=== PATIENT | female | born 1975 | race Two or more races ===

== ENCOUNTER 2019-01-30 21:51 | Emergency (ER) | payer OTHER ==
[~2019-01-30] VITALS: Ht 160 cm; Wt 94.3 kg
[2019-01-30] MEDS ORDERED: ASPIRIN 325 MG TABLET PO ONE (23:00)
[2019-01-30] MEDS ORDERED: IV NORMAL SALINE 1000ML BAG 1,000 ML IV ONE (23:00)
[2019-01-30 23:08] LABS: BASO # 0.2 x10^3/uL (0.0-0.2); BASO % 1 % (0-3); EOS # 0.3 x10^3/uL (0.0-0.7); EOS % 2 % (0-3); HEMATOCRIT 38.9 % (36.0-47.0); HEMOGLOBIN 12.8 g/dL (12.0-15.5); LYMPH # 6.5 x10^3/uL (1.0-4.8); LYMPH % 37 % (24-48); MEAN CORPUSCULAR HEMOGLOBIN 26 pg (25-35); MEAN CORPUSCULAR HGB CONC 33 g/dL (31-37); MEAN CORPUSCULAR VOLUME 79 fL (79-100); MONO # 1.1 x10^3/uL (0.0-1.1); MONO % 6 % (0-9); NEUT # 9.7 x10^3uL (1.8-7.7); NEUT % 54 % (31-73); PLATELET COUNT 544 x10^3/uL (140-400); RED BLOOD COUNT 4.93 x10^6/uL (3.50-5.40); RED CELL DISTRIBUTION WIDTH 15.6 % (11.5-14.5); WHITE BLOOD COUNT 17.8 x10^3/uL (4.0-11.0)
[2019-01-30 23:27] LABS: ALBUMIN 3.4 g/dL (3.4-5.0); ALBUMIN/GLOBULIN RATIO 0.8 (1.0-1.7); CREATININE 0.7 mg/dL (0.6-1.0); GFR 90.5; MAGNESIUM 1.9 mg/dL (1.8-2.4); TOTAL BILIRUBIN 0.2 mg/dL (0.2-1.0); TOTAL PROTEIN 7.8 g/dL (6.4-8.2)
[2019-01-30 23:28] LABS: POTASSIUM 2.8 mmol/L (3.5-5.1)
[2019-01-30 23:35] LABS: CREATINE KINASE 62 U/L (26-192)
[2019-01-30 23:45] LABS: PARTIAL THROMBOPLASTIN TIME 34 SEC (24-38); PROTHROMBIN TIME PATIENT 13.2 SEC (11.7-14.0)
--- NOTE | 2019-01-30 23:45 | PHYS DOC ---
Past Medical History Past Medical History: Other Additional Past Medical Histor: "Intercranial HTN", "retains water" Past Surgical History: , Splenectomy, Other Additional Past Surgical Histo: Pancreatectomy Additional Information: Nonsmoker Alcohol Use: None Drug Use: None Adult General Chief Complaint Chief Complaint: CHEST PAIN-CARDIAC NATURE HPI HPI Patient is a 43-year-old female who presents with chest pain. She says the pain started several weeks ago and has been getting progressively worse. Today while she was driving she had a few onset chest pain that radiated up into her neck and down into her left arm weakness that was more severe than any of her previous episodes. He concerned her so she decided to come straight to the ER without taking any medication. Her past episodes of chest pain felt similar but were not nearly as severe. The past to take aspirin that would relieve the pain. She denies nausea, vomiting, SOB, diaphoresis. She has also had increased swelling of her extremities she says she retains water but is unclear why. She has blurry vision that is often associated with her headaches and has been getting a lot worse lately. Last Saturday she also had an episode of vomiting is associated with a migraine headache. Review of Systems Review of Systems Constitutional: Denies fever or chills Eyes: Denies redness or eye pain, reports blurry vision HENT: Denies nasal congestion or sore throat Respiratory: Denies cough or shortness of breath Cardiovascular: Reports chest pain. Denies palpitations GI: Denies abdominal pain, nausea, or vomiting : Denies dysuria or hematuria Musculoskeletal: Denies back pain or joint pain Integument: Denies rash or skin lesions Neurologic: Reports headache. Denies focal weakness or sensory changes Complete systems were reviewed and found to be within normal limits, except as documented in this note. Current Medications Current Medications Current Medications Medications (Trade) Dose Ordered Sig/Angélica Start Time Stop Time Status Last Admin Dose Admin Aspirin (Sergio Aspirin) 325 mg 1X ONCE 01/30/19 23:00 01/30/19 23:01 DC 01/30/19 23:11 325 MG Info (CONTRAST GIVEN -- Rx MONITORING) 1 each PRN DAILY PRN 01/31/19 00:15 01/31/19 03:45 DC Iohexol (Omnipaque 350 Mg/ml) 100 ml 1X ONCE 01/31/19 00:15 01/31/19 00:16 DC 01/31/19 00:43 100 ML Potassium Chloride (Klor-Con) 40 meq 1X ONCE 01/31/19 00:00 01/31/19 00:01 DC 01/31/19 01:12 40 MEQ Sodium Chloride 1,000 ml @ 1,000 mls/hr 1X ONCE 01/30/19 23:00 01/30/19 23:59 DC 01/30/19 23:11 1,000 MLS/HR Allergies Allergies Allergies Coded Allergies Type Severity Reaction Last Updated Verified Penicillins Allergy Unknown 01/30/19 Yes carbamazepine Allergy Unknown 01/30/19 Yes Physical Exam Physical Exam Constitutional: Well developed, well nourished, no acute distress, non-toxic appearance HENT: Normocephalic, atraumatic, oropharynx moist Eyes: PERRL, EOMI, conjunctiva normal, no discharge Neck: Normal range of motion, no tenderness, supple Cardiovascular: Heart rate normal, regular rhythm Lungs & Thorax: Bilateral breath sounds clear to auscultation, no wheezing Abdomen: Soft, no tenderness Skin: Warm, dry, no erythema, no rash Back: No tenderness, no CVA tenderness Extremities: No tenderness, ROM intact, Edema in bilateral lower extremities Neurologic: Alert and oriented X 3, normal motor function, normal sensory function, no focal deficits noted Psychologic: Affect normal, judgement normal, mood normal Current Patient Data Vital Signs Vital Signs Date Time Temp Pulse Resp B/P (MAP) Pulse Ox O2 Delivery O2 Flow Rate FiO2 01/31/19 03:02 97 16 123/54 (77) 97 Room Air 01/30/19 21:55 97.9 97.9 Lab Values Laboratory Tests Test 01/30/19 22:34 01/30/19 23:30 01/30/19 23:59 01/31/19 02:00 White Blood Count 17.8 x10^3/uL (4.0-11.0) H Red Blood Count 4.93 x10^6/uL (3.50-5.40) Hemoglobin 12.8 g/dL (12.0-15.5) Hematocrit 38.9 % (36.0-47.0) Mean Corpuscular Volume 79 fL (79-100) Mean Corpuscular Hemoglobin 26 pg (25-35) Mean Corpuscular Hemoglobin Concent 33 g/dL (31-37) Red Cell Distribution Width 15.6 % (11.5-14.5) H Platelet Count 544 x10^3/uL (140-400) H Neutrophils (%) (Auto) 54 % (31-73) Lymphocytes (%) (Auto) 37 % (24-48) Monocytes (%) (Auto) 6 % (0-9) Eosinophils (%) (Auto) 2 % (0-3) Basophils (%) (Auto) 1 % (0-3) Neutrophils # (Auto) 9.7 x10^3uL (1.8-7.7) H Lymphocytes # (Auto) 6.5 x10^3/uL (1.0-4.8) H Monocytes # (Auto) 1.1 x10^3/uL (0.0-1.1) Eosinophils # (Auto) 0.3 x10^3/uL (0.0-0.7) Basophils # (Auto) 0.2 x10^3/uL (0.0-0.2) Sodium Level 138 mmol/L (136-145) Potassium Level 2.8 mmol/L (3.5-5.1) *L Chloride Level 101 mmol/L (98-107) Carbon Dioxide Level 28 mmol/L (21-32) Anion Gap 9 (6-14) Blood Urea Nitrogen 17 mg/dL (7-20) Creatinine 0.7 mg/dL (0.6-1.0) Estimated GFR (Cockcroft-Gault) 90.5 BUN/Creatinine Ratio 24 (6-20) H Glucose Level 108 mg/dL (70-99) H Lactic Acid Level 1.2 mmol/L (0.4-2.0) Calcium Level 9.0 mg/dL (8.5-10.1) Magnesium Level 1.9 mg/dL (1.8-2.4) Total Bilirubin 0.2 mg/dL (0.2-1.0) Aspartate Amino Transferase (AST) 12 U/L (15-37) L Alanine Aminotransferase (ALT) 20 U/L (14-59) Alkaline Phosphatase 83 U/L (46-116) Creatine Kinase 62 U/L (26-192) Creatine Kinase MB (Mass) 1.0 ng/mL (0.0-3.6) Creatine Kinase MB Relative Index % (0-4) Troponin I Quantitative < 0.017 ng/mL (0.000-0.055) < 0.017 ng/mL (0.000-0.055) KX-Awv-L-Type Natriuretic Peptide 23 pg/mL (0-124) Total Protein 7.8 g/dL (6.4-8.2) Albumin 3.4 g/dL (3.4-5.0) Albumin/Globulin Ratio 0.8 (1.0-1.7) L Lipase 107 U/L (73-393) Prothrombin Time 13.2 SEC (11.7-14.0) Prothrombin Time INR 1.0 (0.8-1.1) PTT 34 SEC (24-38) D-Dimer (Genny) < 0.27 ug/mlFEU Urine Collection Type Unknown Urine Color Yellow Urine Clarity Cloudy Urine pH 5.0 Urine Specific Cantil 1.025 Urine Protein Negative mg/dL (NEG-TRACE) Urine Glucose (UA) Negative mg/dL (NEG) Urine Ketones (Stick) Negative mg/dL (NEG) Urine Blood Trace (NEG) Urine Nitrite Negative (NEG) Urine Bilirubin Negative (NEG) Urine Urobilinogen Dipstick 0.2 mg/dL (0.2 mg/dL) Urine Leukocyte Esterase Negative (NEG) Urine RBC Occ /HPF (0-2) Urine WBC 0 /HPF (0-4) Urine Squamous Epithelial Cells Few /LPF Urine Bacteria 0 /HPF (0-FEW) Urine Mucus Slight /LPF Laboratory Tests 01/30/19 22:34 Laboratory Tests 01/30/19 22:34 EKG EKG 01/30/19 at 2200: Normal sinus tachycardia at [address] segment elevation. [] Radiology/Procedures Radiology/Procedures PROCEDURE: CT ANGIOGRAPHY CHEST PQRS Compliance Statement: One or more of the following individualized dose reduction techniques were utilized for this examination: 1. Automated exposure control 2. Adjustment of the mA and/or kV according to patient size 3. Use of iterative reconstruction technique CT angiography chest with contrast 01/30/2019 11:45 PM INDICATION: Chest pain with history of protein S deficiency COMPARISON: None available TECHNIQUE: Axial CT images of the chest were obtained after the intravenous administration of nonionic contrast. Coronal and sagittal reformats are provided. Maximum intensity projection images of the thoracic vasculature are provided. FINDINGS: The thyroid gland is normal in appearance. There are no pathologically enlarged axillary, mediastinal or hilar lymph nodes. The heart size is within normal limits. No significant pericardial effusion. Thoracic aorta is normal in course and caliber. Residual thymic tissue is identified in the anterior superior mediastinum. There is adequate opacification of the pulmonary arterial system. There there are no filling defects within the pulmonary arterial system to suggest acute or chronic pulmonary embolus. There are no suspicious solid noncalcified pulmonary nodules. There are no pulmonary infiltrates. There are no pleural effusions. No pulmonary vascular congestion or pneumothorax. Visualized portions of the upper abdomen are within normal limits. No suspicious osseous lesions are visualized. IMPRESSION: There is no evidence for acute or chronic pulmonary embolism. Electronically signed by: Alka Burr MD (01/31/2019 1:10 AM) [facility] [place] DICTATED and SIGNED BY: ALKA BURR MD DATE: 01/31/19 0110 PROCEDURE: VENOUS LOWER EXT BILATERAL BILATERAL LOWER EXTREMITY ULTRASOUND WITH DOPPLER 01/30/2019 11:45 PM Clinical Information: Bilateral lower extremity edema and pain, right greater than left. Comparison: None. Technique: Multiple grayscale, color Doppler, and spectral Doppler sonographic images of the lower extremity venous structures were obtained. Findings: The right common femoral, femoral, and popliteal veins exhibit normal compression, respiratory phasicity, and augmentation. No intraluminal thrombi are identified. Color Doppler flow is demonstrated in the right posterior tibial, and peroneal veins. The left common femoral, femoral, and popliteal veins exhibit normal compression, respiratory phasicity, and augmentation. No intraluminal thrombi are identified. Color Doppler flow is demonstrated in the left posterior tibial, and peroneal veins. Greater saphenous veins are patent. Impression: 1. No evidence of deep venous thrombosis. Electronically signed by: Alka Burr MD (01/31/2019 12:37 AM) [facility] [place] DICTATED and SIGNED BY: ALKA BURR MD DATE: 01/31/19 0037[] Course & Med Decision Making Course & Med Decision Making Pertinent Labs and Imaging studies reviewed. (See chart for details) Ms. Martínez is a 43-year-old female who with a past medical history of protein S deficiency and idiopathic intracranial hypertension who presents with chest pain. Chest pain has been going on for several weeks but has been progres sively getting worse. She said of chest pain was significantly worse today and radiated up into her neck and down her left arm so she decided to come to the ED to get evaluated. EKG and troponin was negative for acute coronary syndrome. Due to her protein S deficiency and bilateral lower extremity swelling we got a CT angiogram and duplex ultrasound lower extremities that were negative for DVT and PE. After discussing with patient and she decided she wanted to return home and follow with her primary care doctor. Patient stable for discharge with outpatient follow-up with PCP. Discussed findings and plan with patient, who acknowledge understanding and agreement. [] Dragon Disclaimer Dragon Disclaimer This electronic medical record was generated, in whole or in part, using a voice recognition dictation system. Departure Departure Impression: Primary Impression: Atypical chest pain Additional Impression: Peripheral edema Disposition: HOME, SELF-CARE Condition: STABLE Referrals: UNKNOWN PCP NAME (PCP) NICKIE HUFF MD Patient Instructions: Chest Pain (Nonspecific), [id number], Peripheral Edema The HEART Score for CP Pts HEART Score for Chest Pain: HEART Score for Chest Pain Response (Comments) Value History Moderately Suspicious 1 ECG Normal 0 Age >45 - < 65 1 Risk Factors 1 or 2 Risk Factors 1 Troponin < Normal Limit 0 Total 3 Risk Factors: Risk Factors: DM, Current or recent (<one month) smoker, HTN, HLP, family history of CAD, obesity. Risk Scores: Score 0 - 3: 2.5% MACE over next 6 weeks - Discharge Home Score 4 - 6: 20.3% MACE over next 6 weeks - Admit for Clinical Observation Score 7 - 10: 72.7% MACE over next 6 weeks - Early Invasive Strategies Problem Qualifiers SADIE GERMAN DO Jan 30, 2019 23:45
[2019-01-30 23:49] LABS: D-DIMER < 0.27 ug/mlFEU (0.00-0.50)
[2019-01-31] MEDS ORDERED: POTASSIUM CHLORIDE 20 MEQ TABLET.ER. PO ONE
[2019-01-31] MEDS ORDERED: IOHEXOL 350 MG/ML 100 ML VIAL. IV ONE (00:15)
[2019-01-31] MEDS ORDERED: CONTRAST GIVEN. MC PRN (00:15)
[2019-01-31 00:18] LABS: BILIRUBIN,URINE NEGATIVE (NEG); CLARITY,URINE CLOUDY; COLOR,URINE YELLOW; NITRITE,URINE NEGATIVE (NEG); PROTEIN,URINE NEGATIVE (NEG-TRACE); UROBILINOGEN,URINE 0.2 mg/dL (0.2 mg/dL)
[2019-01-31 00:28] LABS: BACTERIA,URINE 0 /HPF (0-FEW); RBC,URINE OCC /HPF (0-2); SQUAMOUS EPITHELIAL CELL,UR FEW /LPF; WBC,URINE 0 /HPF (0-4)
--- NOTE | 2019-01-31 00:40 | RAD ---
BILATERAL LOWER EXTREMITY ULTRASOUND WITH DOPPLER 01/30/2019 11:45 PM Clinical Information: Bilateral lower extremity edema and pain, right greater than left. Comparison: None. Technique: Multiple grayscale, color Doppler, and spectral Doppler sonographic images of the lower extremity venous structures were obtained. Findings: The right common femoral, femoral, and popliteal veins exhibit normal compression, respiratory phasicity, and augmentation. No intraluminal thrombi are identified. Color Doppler flow is demonstrated in the right posterior tibial, and peroneal veins. The left common femoral, femoral, and popliteal veins exhibit normal compression, respiratory phasicity, and augmentation. No intraluminal thrombi are identified. Color Doppler flow is demonstrated in the left posterior tibial, and peroneal veins. Greater saphenous veins are patent. Impression: 1. No evidence of deep venous thrombosis. Electronically signed by: Skyla Torres MD (01/31/2019 12:37 AM) [facility]
--- NOTE | 2019-01-31 01:13 | RAD ---
PQRS Compliance Statement: One or more of the following individualized dose reduction techniques were utilized for this examination: 1. Automated exposure control 2. Adjustment of the mA and/or kV according to patient size 3. Use of iterative reconstruction technique CT angiography chest with contrast 01/30/2019 11:45 PM INDICATION: Chest pain with history of protein S deficiency COMPARISON: None available TECHNIQUE: Axial CT images of the chest were obtained after the intravenous administration of nonionic contrast. Coronal and sagittal reformats are provided. Maximum intensity projection images of the thoracic vasculature are provided. FINDINGS: The thyroid gland is normal in appearance. There are no pathologically enlarged axillary, mediastinal or hilar lymph nodes. The heart size is within normal limits. No significant pericardial effusion. Thoracic aorta is normal in course and caliber. Residual thymic tissue is identified in the anterior superior mediastinum. There is adequate opacification of the pulmonary arterial system. There there are no filling defects within the pulmonary arterial system to suggest acute or chronic pulmonary embolus. There are no suspicious solid noncalcified pulmonary nodules. There are no pulmonary infiltrates. There are no pleural effusions. No pulmonary vascular congestion or pneumothorax. Visualized portions of the upper abdomen are within normal limits. No suspicious osseous lesions are visualized. IMPRESSION: There is no evidence for acute or chronic pulmonary embolism. Electronically signed by: Skyla Torres MD (01/31/2019 1:10 AM) [facility]
[2019-01-31 03:02] VITALS: BP 123/54
--- NOTE | 2019-01-31 09:48 | EKG ---
[facility] [address] [place] [address] Test Date: 2019-01-30 Test Time: 22:00:20 Pat Name: IBIS GRACE Department: Room: Gender: F [employer] Member: : 1975 Requested By: SADIE GERMAN Order Number: [id number] Reading MD: Measurements Intervals Pender Rate: 104 P: 48 OK: 174 QRS: 28 QRSD: 76 T: 36 QT: 352 QTc: 463 Interpretive Statements SINUS TACHYCARDIA OTHERWISE NORMAL ECG RI6.01 Unconfirmed report No previous ECG available for comparison
== END 2019-01-31 03:40 | disposition home or self-care (01) ==
LOC: ER 21:51
DX: R07.89 Other chest pain (principal); R60.0 Localized edema; G93.2 Benign intracranial hypertension; G43.909 Migraine, unspecified, not intractable, without status migrainosus; Z88.0 Allergy status to penicillin; Z88.8 Allergy status to other drugs, medicaments and biological substances
CPT/HCPCS: 36415; 71275; 80053; 81001; 82553; 83605; 83690; 83735; 83880; 84484; 85025; 85379; 85610; 85730; 93005; 93970; 96360; 99285; J7030; Q9967